=== PATIENT | female | born 1970 | race Caucasian/White ===

== ENCOUNTER 2018-09-29 15:27 | Emergency (ER) | payer OTHER ==
[2018-09-29 17:28] LABS: ADD MAN DIFF? NO
[2018-09-29 17:29] LABS: WHITE BLOOD COUNT 9.6 10^3/ul (4.8-10.8)
[2018-09-29 17:29] LABS: BASOPHILS % 0.4 % (0.0-2.0); EOSINOPHILS # 0.1 10^3/ul (0.0-0.5); EOSINOPHILS % 0.8 % (0.0-7.0); HEMATOCRIT 39.5 % (37.0-47.0); HEMOGLOBIN 13.4 g/dl (12.0-16.0); LYMPHOCYTES # 2.8 10^3/ul (0.8-2.9); LYMPHOCYTES % 29.1 % (15.0-51.0); MEAN CORPUSCULAR HEMOGLOBIN 28.2 pg (29.0-33.0); MEAN CORPUSCULAR HGB CONC 33.9 g/dl (32.0-37.0); MEAN CORPUSCULAR VOLUME 83.2 fl (82.0-101.0); MEAN PLATELET VOLUME 11.6 fl (7.4-10.4); MONOCYTE # 0.7 10^3/ul (0.3-0.9); MONOCYTES % 6.9 % (0.0-11.0); NEUTROPHIL # 5.9 10^3/ul (1.6-7.5); NEUTROPHILS % 61.8 % (39.0-77.0); PLATELET COUNT 325 10^3/UL (140-415); RED BLOOD COUNT 4.75 10^6/ul (4.20-5.40); RED CELL DISTRIBUTION WIDTH 12.6 % (11.5-14.5)
[2018-09-29 17:48] LABS: ANION GAP 13 (5-13); BLOOD UREA NITROGEN 17 mg/dl (7-20); CARBON DIOXIDE 25 mmol/L (21-31); CHLORIDE 91 mmol/L (97-110); CREATININE 0.74 mg/dl (0.44-1.00); Estimated GFR > 60 mL/min (>60); SODIUM 129 mmol/L (135-144)
[2018-09-29 17:52] LABS: GLUCOSE 601 mg/dl (70-220)
[2018-09-29 18:00] LABS: TROPONIN-I < 0.012 ng/ml (0.000-0.120)
[2018-09-29] MEDS: SOD CHLORIDE 0.9% 1,000 ML IV (18:01)
[2018-09-29] MEDS: MECLIZINE 12.5 MG TAB PO (18:01)
[2018-09-29] MEDS: INSULIN LISPRO 100 UNIT/ML VIAL SC (20:22)
[2018-09-29] MEDS: ACCU-CHEK XX (21:03)
== END 2018-09-29 22:23 | disposition home or self-care (01) ==
LOC: E/R 15:27
DX: J32.9 Chronic sinusitis, unspecified (principal); I10 Essential (primary) hypertension; E11.65 Type 2 diabetes mellitus with hyperglycemia; Z79.4 Long term (current) use of insulin
CPT/HCPCS: 36415; 70450; 71045; 80048; 81025; 82962; 84484; 85025; 93005; 96372; 99285-25